=== PATIENT | male | born 1995 | race Two or more races ===

== ENCOUNTER 2024-09-28 18:53 | Inpatient (IN) | payer OTHER ==
[~2024-09-28] VITALS: Ht 182.9 cm; Wt 112.3 kg
[2024-09-28 19:15] VITALS: BP 132/86; PULSE 94; RESP 13; TEMP 98.7; O2SAT 97
--- NOTE | 2024-09-28 19:22 | ED.PDOC ---
GI ASSESSMENT HPI Comments 28y M who presents to the ED for chief complaint of abdominal pain. Pt states he has been having epigastric abdominal pain since last night PM. Pt states his pain is epigastric in location, non-radiating, rating the leach 8/10, intermittent, with no associated exacerbating or relieving factors. Pt has associated fever, chills, and nausea but otherwise denies any other symptoms. Pt has history of gallstones but no noted surgery has been done yet. Pt otherwise denies any other symptoms at this time. Time Seen by MD: 19:18 Primary Care Provider: JASPREET Reviewed Notes: Nurses Notes, Medications, Allergies Allergies: Coded Allergies: NO KNOWN ALLERGIES (Unverified , 01/30/16) Information Source: Patient Mode of Arrival: Ambulatory Brought in by: self Timing: Hours Duration: Since onset Prehospital treatment: None Quality: Aching Vomitus: None Stool: Normal Severity: Moderate Recent: None Recent Hx of: None Pain Location: Epigastric Modifying Factors: Nothing Associated sign and symptoms: Nausea, Diarrhea, Abdominal Pain, Fever Past Medical History PAST MEDICAL HISTORY: Denies Surgical History: Denies all surgeries Family History Family History: Family hx of DM Social History Smoker: Non-Smoker Alcohol: Occasionally Drugs: Denies Drug Use Lives In: Home Constitutional: reports: chills, fever; denies: diaphoresis, fatigue, malaise, sweats, weakness, others EENTM: denies: blurred vision, double vision, ear bleeding, ear discharge, ear drainage, ear pain, ear ringing, eye pain, eye redness, hearing loss, mouth pain, mouth swelling, nasal discharge, nose bleeding, nose congestion, nose pain, photophobia, tearing, throat pain, throat swelling, voice changes, others Respiratory: denies: cough, hemoptysis, orthopnea, SOB at rest, shortness of breath, SOB with excertion, stridor, wheezing, others Cardiovascular: denies: chest pain, dizzy spells, diaphoresis, Dyspnea on exertion, edema, irregular heart beat, left arm pain, lightheadedness, palpitations, PND, syncope, others Gastrointestinal: reports: diarrhea, nausea; denies: abdomen distended, abdominal pain, blood streaked bowels, constipated, dysphagia, difficulty swallowing, hematemesis, melena, poor appetite, poor fluid intake, rectal bleeding, rectal pain, vomiting, others Genitourinary: denies: burning, dysuria, flank pain, frequency, hematuria, inc ontinence, penile discharge, penile sore, pain, testicle pain, testicle swelling, urgency, others Neurological: denies: dizziness, fainting, headache, left sided numbness, left sided weakness, numbness, paresthesia, pre-existing deficit, right sided numbness, right sided weakness, seizure, speech problems, tingling, tremors, weakness, others Musculoskeletal: denies: back pain, gout, joint pain, joint swelling, muscle pain, muscle stiffness, neck pain, others Integumetry: denies: bruises, change in color, change in hair/nails, dryness, laceration, lesions, lumps, rash, wounds, others Allergic/Immunocompromised: denies: Difficulty Healing, Frequent Infections, Hives, Itching, others Hematologic/Lymphatic: denies: anemia, blood clots, easy bleeding, easy bruising, swollen glands, others Endocrine: denies: excessive hunger, excessive sweating, excessive thirst, excessive urination, flushing, intolerance to cold, intolerance to heat, unexplained weight gain, unexplained weight loss, others Psychiatric: denies: anxiety, bipolar disorder, depression, hopeless, panic disorder, schizophrenia, sleepless, suicidal, others All Other Systems: Reviewed and Negative Physical Exam General Appearance: Moderate Distress HEENT: Normal ENT Inspection, Pharynx Normal, TMs Normal Neck: Full Range of Motion, Non-Tender, Normal, Normal Inspection Respiratory: Chest Non-Tender, Lungs Clear, No Accessory Muscle Use, No Respiratory Distress, Normal Breath Sounds Cardiovascular: No Edema, No JVD, No Murmur, No Gallop, Normal Peripheral Pulses, Regular Rate/Rhythm Breast Exam: Deferred Gastrointestinal: Epigastric, No Organomegaly, Normal Bowel Sounds, Soft, Tenderness Genitalia: Deferred Pelvic: Deferred Rectal: Deferred Extremities: No calf tenderness, Normal capillary refill, Non-tender, No pedal edema Musculoskeletal : Apperance: Normal Neurologic: Alert, cloth handler II-XII nml as Tested, No Motor Deficits, Normal Affect, Normal Mood, No Sensory Deficits Cerebellar Function: Normal Reflexes: Normal Skin: Dry, Normal Color, Warm Lymphatic: No Adenopathy Was a procedure done? Was a procedure done?: No GI differential Dx Differential Diagnosis: Cholecystitis, Esophagitis, Gastritis/PUD, Gastroenteritis, Dehydration, Food Poisoning, Bacterial, Viral Other Differential Diagnosis gallstones X-Ray, Labs, Meds, VS Vital Signs Date Time Temp Pulse Resp B/P (MAP) Pulse Ox O2 Delivery O2 Flow Rate FiO2 09/28/24 19:15 98.7 94 13 132/86 (101) 97 98.7 Lab Test 09/28/24 19:26 Range/Units White Blood Count 8.6 4.4-10.8 10^3/uL Red Blood Count 5.08 4.5-5.90 10^6/uL Hemoglobin 15.0 13.5-17.5 g/dL Hematocrit 42.5 41.0-53.0 % Mean Corpuscular Volume 83.7 80.0-100.0 fL Mean Corpuscular Hemoglobin 29.5 28.0-32.0 pg Mean Corpuscular Hemoglobin Concent 35.2 32.0-36.0 g/dL Red Cell Distribution Width 13.9 11.8-14.3 % Platelet Count 209 140-450 10^3/uL Mean Platelet Volume 8.5 6.9-10.8 fL Neutrophils (%) (Auto) 73.2 37.0-80.0 % Lymphocytes (%) (Auto) 18.3 10.0-50.0 % Monocytes (%) (Auto) 5.9 0.0-12.0 % Eosinophils (%) (Auto) 1.8 0.0-7.0 % Basophils (%) (Auto) 0.8 0.0-2.0 % Neutrophils # (Auto) 6.3 1.6-8.6 10 ^3/uL Lymphocytes # (Auto) 1.6 0.4-5.4 10 ^3/uL Monocytes # (Auto) 0.5 0-1.3 10 ^3/uL Eosinophils # (Auto) 0.2 0-0.8 10 ^3/uL Basophils # (Auto) 0.1 0-0.2 10 ^3/uL Nucleated Red Blood Cells 0.1 % Sodium Level 140 136-145 mmol/L Potassium Level 3.8 3.5-5.1 mmol/L Chloride Level 106 98-107 mmol/L Carbon Dioxide Level 27 20-31 mmol/L Anion Gap 7 5-15 Blood Urea Nitrogen 13 9-23 mg/dL Creatinine 1.05 0.700-1.30 mg/dL Glomerular Filtration Rate Calc 100 >90 mL/min BUN/Creatinine Ratio 12.4 10.0-20.0 Serum Glucose 103 74-106 mg/dL Calcium Level 9.0 8.7-10.4 mg/dL Total Bilirubin 1.3 H 0.2-1.0 mg/dL Aspartate Amino Transferase (AST) 9 L 13-40 U/L Alanine Aminotransferase (ALT) 15 7-40 U/L Alkaline Phosphatase 87 46-116 U/L Total Protein 7.3 5.7-8.2 g/dL Albumin 4.8 3.2-4.8 g/dL Lipase 29 12-53 U/L TECHNIQUE: US GALLBLADDER Multiple real-time sonographic images of the abdomen were obtained. IMPRESSION: 1. Gallstones no thickened wall or dilated common bile duct. Negative ultrasound Wellington's sign is elicited. At this time the patient's CBC and chemistry panel is within normal limits except for an elevated bilirubin at 1.3 The rest of the chemistry panel is within normal limits. The patient was being admitted at this time The patient was given morphine 4 mg IV push The patient was also given Zofran 4 mg IV push The patient was being admitted Images Reviewed?: Images reviewed and evaluated by me Time of 1ST Reevaluation: 19:50 Reevaluation 1ST: Unchanged Patient Education/Counseling: Diagnosis, Treatment, Prognosis Family Education/Counseling: No Family Present Additional Information -Reviewed patient's previous visit(s): - The following tests were ordered, and results were reviewed by me: cbc, cmp, lipase, gallbladder us, ua, drug screen - Additional information was gathered from interviewing the following independent Historian: patient - I reviewed and agreed with the following test results read by other provider: radiologist - I discussed treatments and results with medical personnel and: patient Comprehensive systems review obtained and negative except for what is stated in the HPI. Departure 1 Departure Time of Disposition: 21:05 Impression: Primary Impression: Intractable abdominal pain Additional Impression: Cholelithiasis Qualified Codes: K80.20 - Calculus of gallbladder without cholecystitis without obstruction Disposition: ADMITTED INPATIENT Admit to: Med Surg Condition: Fair Critical Care Note Critical Care Time?: No Stability Stability form required: Yes Unstable for transfer: ED Physician Assesment (Clinical assesment) Heart Score Heart Score: Heart Score Response (Comments) Value History N/A 0 EKG N/A 0 Age N/A 0 Risk Factors N/A 0 Troponin N/A 0 Total 0 I personally scribed for SHANNON SALEH MD ([email or web address]) on 09/28/24 at 19:22. Electronically submitted by Elio Hui ([employer]). I personally scribed for SHANNON SALEH MD ([email or web address]) on 09/28/24 at 20:21. Electronically submitted by Elio Hui ([employer]). SHANNON SALEH MD September 28, 2024 19:22
[2024-09-28 19:39] LABS: Basophils # (auto) 0.1 10 ^3/uL (0-0.2); Basophils % (auto) 0.8 % (0.0-2.0); Eosinophils # (auto) 0.2 10 ^3/uL (0-0.8); Eosinophils % (auto) 1.8 % (0.0-7.0); Hematocrit 42.5 % (41.0-53.0); Lymphocytes # (auto) 1.6 10 ^3/uL (0.4-5.4); Lymphocytes % (auto) 18.3 % (10.0-50.0); Mean Corpuscular Hemoglobin 29.5 pg (28.0-32.0); Mean Corpuscular Hgb Conc. 35.2 g/dL (32.0-36.0); Mean Corpuscular Volume 83.7 fL (80.0-100.0); Monocytes # (auto) 0.5 10 ^3/uL (0-1.3); Monocytes % (auto) 5.9 % (0.0-12.0); Neutrophils # (auto) 6.3 10 ^3/uL (1.6-8.6); Neutrophils % (auto) 73.2 % (37.0-80.0); Nucleated Red Blood Cells % 0.1 %; Platelet Count (auto) 209 10^3/uL (140-450); Red Blood Cells 5.08 10^6/uL (4.5-5.90); Red Cell Distribution Width 13.9 % (11.8-14.3); White Blood Cell 8.6 10^3/uL (4.4-10.8)
[2024-09-28 19:58] LABS: Alanine Aminotransferase 15 U/L (7-40); Alkaline Phosphatase 87 U/L (46-116); Anion Gap 7 (5-15); BUN/Creatinine Ratio 12.4 (10.0-20.0); Blood Urea Nitrogen 13 mg/dL (9-23); Carbon Dioxide 27 mmol/L (20-31); Chloride 106 mmol/L (98-107); Glucose 103 mg/dL (74-106); Lipase 29 U/L (12-53); Potassium 3.8 mmol/L (3.5-5.1); Sodium 140 mmol/L (136-145); Total Protein 7.3 g/dL (5.7-8.2)
[2024-09-28 20:01] LABS: Albumin 4.8 g/dL (3.2-4.8); Aspartate Aminotransferase 9 U/L (13-40); Bilirubin, Total 1.3 mg/dL (0.2-1.0)
--- NOTE | 2024-09-28 20:07 | DVH ---
INDICATION: PAIN TECHNIQUE: US GALLBLADDER Multiple real-time sonographic images of the abdomen were obtained. COMPARISON: None FINDINGS: The liver is homogenous in echogenicity. The liver measures 17.4 cm. No intrahepatic bilia ry ductal dilatation is noted. The gallbladder wall measures 0.18 cm and is unremarkable. No gallstones or sludge is seen. The co mmon duct measures 0.4 cm and is unremarkable. No pericholecystic fluid is noted. The right kidney measures 10cm. No hydronephrosis. The pancreas is not well visualized due to obscuration from bowel gas. The visualized portions of the IVC and aorta are grossly unremarkable. IMPRESSION: 1. Gallstones no thickened wall or dilated common bile duct. Negative ultrasound Wellington's sign is agustin cited.
[2024-09-28] MEDS ORDERED: ONDANSETRON HCL 4 MG/2 ML VIAL IV ONE (21:15)
[2024-09-28] MEDS ORDERED: MORPHINE SULFATE 4 MG/ML SYR/VIAL IV ONE (21:15)
[2024-09-28] MEDS ORDERED: KETOROLAC TROMETH 30 MG/ML 1ML VIAL IV PRN (21:45)
[2024-09-28] MEDS ORDERED: HYOSCYAMINE SULF 0.125 MG ODT TAB PO PRN (21:45)
[2024-09-28] MEDS ORDERED: SOD CHL 0.45% 1,000 ML IV SCH (21:45)
[2024-09-28] MEDS ORDERED: ACETAMINOPHEN 325 MG TAB PO PRN (21:45)
--- NOTE | 2024-09-29 03:20 | DVHDSRES ---
Discharge Summary Date of Admission Resident Creating Document: BRI PANCHAL RESIDENT September 28, 2024 at 21:45 Date of Discharge: September 29, 2024 Admitting Diagnosis acute intractable abdominal pain Labs/Diagnostic Data: Laboratory Results Test 09/28/24 19:26 White Blood Count 8.6 10^3/uL (4.4-10.8) Red Blood Count 5.08 10^6/uL (4.5-5.90) Hemoglobin 15.0 g/dL (13.5-17.5) Hematocrit 42.5 % (41.0-53.0) Mean Corpuscular Volume 83.7 fL (80.0-100.0) Mean Corpuscular Hemoglobin 29.5 pg (28.0-32.0) Mean Corpuscular Hemoglobin Concent 35.2 g/dL (32.0-36.0) Red Cell Distribution Width 13.9 % (11.8-14.3) Platelet Count 209 10^3/uL (140-450) Mean Platelet Volume 8.5 fL (6.9-10.8) Neutrophils (%) (Auto) 73.2 % (37.0-80.0) Lymphocytes (%) (Auto) 18.3 % (10.0-50.0) Monocytes (%) (Auto) 5.9 % (0.0-12.0) Eosinophils (%) (Auto) 1.8 % (0.0-7.0) Basophils (%) (Auto) 0.8 % (0.0-2.0) Neutrophils # (Auto) 6.3 10 ^3/uL (1.6-8.6) Lymphocytes # (Auto) 1.6 10 ^3/uL (0.4-5.4) Monocytes # (Auto) 0.5 10 ^3/uL (0-1.3) Eosinophils # (Auto) 0.2 10 ^3/uL (0-0.8) Basophils # (Auto) 0.1 10 ^3/uL (0-0.2) Nucleated Red Blood Cells 0.1 % Sodium Level 140 mmol/L (136-145) Potassium Level 3.8 mmol/L (3.5-5.1) Chloride Level 106 mmol/L (98-107) Carbon Dioxide Level 27 mmol/L (20-31) Anion Gap 7 (5-15) Blood Urea Nitrogen 13 mg/dL (9-23) Creatinine 1.05 mg/dL (0.700-1.30) Glomerular Filtration Rate Calc 100 mL/min (>90) BUN/Creatinine Ratio 12.4 (10.0-20.0) Serum Glucose 103 mg/dL (74-106) Calcium Level 9.0 mg/dL (8.7-10.4) Total Bilirubin 1.3 mg/dL (0.2-1.0) Aspartate Amino Transferase (AST) 9 U/L (13-40) Alanine Aminotransferase (ALT) 15 U/L (7-40) Alkaline Phosphatase 87 U/L (46-116) Total Protein 7.3 g/dL (5.7-8.2) Albumin 4.8 g/dL (3.2-4.8) Lipase 29 U/L (12-53) Other Laboratory Tests 09/28/24 19:26 Brief Hx & Hospital Course: 28-year-old male with past medical history of gallstones and family history of diabetes mellitus presented with acute onset of intermittent, non-radiating epigastric abdominal pain (8/10 in intensity), associated with nausea, diarrhea, fever, and chills. Physical exam was notable for tenderness to palpation in the epigastric region without rebound or guarding. He was afebrile, hemodynamically stable, and in no acute distress. Initial management included NPO status, IV fluids, pain medication and antiemetics. Labs showed transaminitis Given transaminitis and clinical picture, further evaluation was warranted to rule out choledocholithiasis. However, the patient chose to leave the hospital against medical advice prior to completing the recommended work-up and observation. Case discussed with Dr Resendiz Operations or Procedures INDICATION: PAIN TECHNIQUE: US GALLBLADDER Multiple real-time sonographic images of the abdomen were obtained. COMPARISON: None FINDINGS: The liver is homogenous in echogenicity. The liver measures 17.4 cm. No intrahepatic biliary ductal dilatation is noted. The gallbladder wall measures 0.18 cm and is unremarkable. No gallstones or sludge is seen. The common duct measures 0.4 cm and is unremarkable. No pericholecystic fluid is noted. The right kidney measures 10cm. No hydronephrosis. The pancreas is not well visualized due to obscuration from bowel gas. The visualized portions of the IVC and aorta are grossly unremarkable. IMPRESSION: 1. Gallstones no thickened wall or dilated common bile duct. Negative ultrasound Wellington's sign is elicited. Condition at Discharge: Poor Final Diagnosis/Problems List #Acute intractable abdominal pain #Cholelithiasis #Biliary colic #Transaminitis #Rule out choledocholithiasis Discharge Disposition: Eloped Discharge Statement: "Patient was advised to return to the ER or call 911 if any headaches, dizziness, shortness of breath, chest pain, abdominal pain, bleeding, fevers, or worsening of medical condition. Patient was counseled about treatment plan, medications, possible side effects, patientverbalized understanding. All questions were answered to the best of my ability. This discharge took greater then 30 minutes in planning, reviewing documentation, counseling the patient, and discussing with other team members." ASSESSMENT ASSESSMENT Assessment Date of Service: September 29, 2024 Billing Provider: KAYLA RESENDIZ MD Common Visit Codes: 75451-AYV/OBS DISCH DAY <30MIN BRI PANCHAL RESIDENT September 29, 2024 03:20 KAYLA RESENDIZ MD September 29, 2024 17:03
--- NOTE | 2024-09-29 03:20 | DVHHP2 ---
History of Present Illness Reason for Visit: acute intractable abdominal pain History of Present Illness 28-year-old male presents to the ED with acute onset of epigastric abdominal pain since last night. The pain is intermittent, non-radiating, epigastric in location, rated 8/10 in intensity, without known exacerbating or relieving factors. Associated symptoms include nausea, diarrhea, fever, and chills. He denies any vomiting or other systemic complaints. Patient has a known history of gallstones but reports no prior surgery. No recent travel or dietary changes. Past Medical History: Denies chronic conditions Surgical History: Denies any surgeries Family History: Positive for diabetes mellitus Social History: Non-smoker, occasional alcohol use, denies illicit drug use. Review of Systems Review of Systems Constitutional: Reports chills, fever GI: Positive for nausea, diarrhea, epigastric pain All other systems reviewed and negative unless stated in HPI Allergies: Coded Allergies: NO KNOWN ALLERGIES (Unverified , 01/30/16) Exam Vital Signs Vital Signs Date Time Temp Pulse Resp B/P (MAP) Pulse Ox O2 Delivery O2 Flow Rate FiO2 09/28/24 19:15 98.7 94 13 132/86 (101) 97 98.7 Exam General: Alert, no acute distress Abdomen: Soft, non-distended, tenderness to palpation in the epigastric region, no rebound or guarding Other systems: Unremarkable Labs/Xrays Labs Test 09/28/24 19:26 Range/Units White Blood Count 8.6 4.4-10.8 10^3/uL Red Blood Count 5.08 4.5-5.90 10^6/uL Hemoglobin 15.0 13.5-17.5 g/dL Hematocrit 42.5 41.0-53.0 % Mean Corpuscular Volume 83.7 80.0-100.0 fL Mean Corpuscular Hemoglobin 29.5 28.0-32.0 pg Mean Corpuscular Hemoglobin Concent 35.2 32.0-36.0 g/dL Red Cell Distribution Width 13.9 11.8-14.3 % Platelet Count 209 140-450 10^3/uL Mean Platelet Volume 8.5 6.9-10.8 fL Neutrophils (%) (Auto) 73.2 37.0-80.0 % Lymphocytes (%) (Auto) 18.3 10.0-50.0 % Monocytes (%) (Auto) 5.9 0.0-12.0 % Eosinophils (%) (Auto) 1.8 0.0-7.0 % Basophils (%) (Auto) 0.8 0.0-2.0 % Neutrophils # (Auto) 6.3 1.6-8.6 10 ^3/uL Lymphocytes # (Auto) 1.6 0.4-5.4 10 ^3/uL Monocytes # (Auto) 0.5 0-1.3 10 ^3/uL Eosinophils # (Auto) 0.2 0-0.8 10 ^3/uL Basophils # (Auto) 0.1 0-0.2 10 ^3/uL Nucleated Red Blood Cells 0.1 % Sodium Level 140 136-145 mmol/L Potassium Level 3.8 3.5-5.1 mmol/L Chloride Level 106 98-107 mmol/L Carbon Dioxide Level 27 20-31 mmol/L Anion Gap 7 5-15 Blood Urea Nitrogen 13 9-23 mg/dL Creatinine 1.05 0.700-1.30 mg/dL Glomerular Filtration Rate Calc 100 >90 mL/min BUN/Creatinine Ratio 12.4 10.0-20.0 Serum Glucose 103 74-106 mg/dL Calcium Level 9.0 8.7-10.4 mg/dL Total Bilirubin 1.3 H 0.2-1.0 mg/dL Aspartate Amino Transferase (AST) 9 L 13-40 U/L Alanine Aminotransferase (ALT) 15 7-40 U/L Alkaline Phosphatase 87 46-116 U/L Total Protein 7.3 5.7-8.2 g/dL Albumin 4.8 3.2-4.8 g/dL Lipase 29 12-53 U/L Assessment/Plan Assessment/Plan #Acute intractable abdominal pain #Cholelithiasis #Biliary colic #Transaminitis #Rule out choledocholithiasis Plan: Admit for symptom control and monitoring Pain control Antiemetics: Zofran 4 mg IV NPO, IV fluids Educate patient on diagnosis, treatment, and follow-up Monitor labs and clinical status Patient left AMA further work up to rule out choledocholithiasis could be done Case discussed with Dr Resendiz Plan discussed with: Patient, Other My Orders Orders - BRI PANCHAL RESIDENT Procedure Category Date Status Time Admit ADMIT 09/28/24 Transmitted 21:45 Code Status CODE 09/28/24 Transmitted 21:45 Patient Condition ORDERS 09/28/24 Transmitted 21:45 Date of Service: September 28, 2024 Billing Provider: KAYLA RESENDIZ MD Common Visit Codes: 21740-ELBGLRE INP/OBS CARE (HIGH) Secondary Visit Codes: 92079-[id number] CARE PLAN 30 MINUTES BRI PANCHAL RESIDENT September 29, 2024 03:19
[2024-09-29] MEDS ORDERED: PANTOPRAZOLE 40 MG/10 ML VIAL INJ IV SCH (10:00)
== END 2024-09-29 00:03 | disposition left against medical advice (07) | DRG 446 ==
LOC: ER 19:07 → OVERFLOW 21:45 → CENTRAL 23:55
PROVIDERS: ATTEND Emergency Medicine
DX: K80.70 Calculus of gallbladder and bile duct without cholecystitis without obstruction (principal); R74.01 Elevation of levels of liver transaminase levels; Z53.29 Procedure and treatment not carried out because of patient's decision for other reasons; Z83.3 Family history of diabetes mellitus; Z79.899 Other long term (current) drug therapy
CPT/HCPCS: 36415; 76705; 80053; 83690; 85025; G0378